=== PATIENT | male | born 1945 | race Caucasian/White ===

== ENCOUNTER → 2022-10-12 09:53 | Outpatient (BNVA) | payer OTHER, SELFPAY | PROVIDERS: PCP Family Medicine; Visit Provider Internal Medicine Cardiovascular Disease | DX: R07.9 Chest pain, unspecified (principal); R01.1 Cardiac murmur, unspecified; I10 Essential (primary) hypertension; I71.9 Aortic aneurysm of unspecified site, without rupture; J44.9 Chronic obstructive pulmonary disease, unspecified; Z87.891 Personal history of nicotine dependence; I45.2 Bifascicular block | CPT/HCPCS: 93005; 99204 ==

== ENCOUNTER 2022-11-10 15:17 | Outpatient (CLI) | payer OTHER, SELFPAY ==
--- NOTE | 2022-11-10 15:30 | CT_ITS ---
WS: [id number] CTA THORACIC TECHNIQUE: Contrast enhanced CTA of the thoracic aorta with coronal and sagittal reformatted images a nd maximum intensity projection (MIP) images. CLINICAL INFORMATION: ascending and descending thoracic aortic aneurysm. COMPARISON: None. DLP: 695.[address] scans at [facility] use at least one of these dose optimization techniques: automated e xposure control; mA and/or kV adjustment per patient size (includes targeted exams where dose is matc hed to clinical indication); or iterative reconstruction. FINDINGS: Aneurysmal ascending thoracic aorta. This measures 4.4 cm in the proximal ascending thoracic aorta. A gerardo measures 3.8 cm at the sinuses of Valsalva and 2.6 cm at the sinotubular junction. High ascendin g thoracic aorta measures 4.2 cm at the level of the RIGHT main pulmonary artery. Aneurysmal distal a ortic arch and proximal descending thoracic aorta measuring 3.5 CCM. Mid and distal descending thorac ic aorta are normal caliber. Normal caliber upper abdominal aorta. Celiac and SMA are patent. Coronar y calcification. No axillary lymphadenopathy. No mediastinal or hilar lymphadenopathy. Normal thyroid gland. Proximal main pulmonary arteries appear normal. Normal branching aortic arch anatomy. Small cysts in the dome the liver. Adrenal glands are normal. Partially visualized bilateral renal cy sts. Some too small characterize. Hypertrophic changes thoracic spine with diffuse ankylosis. Mild chronic emphysematous changes. A few calcified granulomas. No acute pulmonary infiltrates. No fo lisa pneumonia or pleural fluid. Slight subsegmental atelectasis in the lung bases. CT/CT angio chest 03689 IMPRESSION: 1. Aneurysmal ascending thoracic aorta and aortic root described above.This me asures 4.4 cm in the proximal ascending thoracic aorta. 2. Aorta measures 3.8 cm at the sinuses of Valsalva and 2.6 cm at the sinotubu lar junction. 3. High ascending thoracic aorta measures 4.2 cm at the level of the RIGHT joaquin n pulmonary artery. Aneurysmal distal aortic arch and proximal descending thora cic aorta measuring 3.5 CM 4. Lungs are well aerated. No acute pulmonary infiltrates. 5. No mediastinal or hilar lymphadenopathy. 6. No other acute findings.
[2022-11-10 16:13] LABS: Blood Urea Nitrogen 19 mg/dL (8-23)
== END 2022-11-10 15:18 | disposition home or self-care (01) ==
LOC: RAD 15:17
PROVIDERS: PCP Family Medicine; Visit Provider Internal Medicine Cardiovascular Disease
DX: I71.21 Aneurysm of the ascending aorta, without rupture (principal); Q25.43 Congenital aneurysm of aorta
CPT/HCPCS: 71275; 82565; 84520; Q9967

== ENCOUNTER → 2023-02-15 11:20 | Outpatient (BNVA) | payer OTHER, SELFPAY | PROVIDERS: PCP Family Medicine; Visit Provider Internal Medicine Cardiovascular Disease | DX: I10 Essential (primary) hypertension (principal); I35.0 Nonrheumatic aortic (valve) stenosis; I71.9 Aortic aneurysm of unspecified site, without rupture; J44.9 Chronic obstructive pulmonary disease, unspecified; N40.0 Benign prostatic hyperplasia without lower urinary tract symptoms; Z87.891 Personal history of nicotine dependence | CPT/HCPCS: 99214 ==

== ENCOUNTER 2023-06-02 12:50 | Outpatient (CLI) | payer OTHER, SELFPAY ==
--- NOTE | 2023-06-02 12:58 | USCV_ITS ---
Scott Camacho Age: 77 Gender: M : 1945 Exam Date: 06/02/2023 13:06 Ordering Phys: Myriam Zamorano MD Technologist: Exam Location: [facility] [place] Indication: AORTIC STENOSIS BP: 167 / 85 HR: 69 Rhythm: Sinus Technical Quality: Adequate MEASUREMENTS (Male / Female) Normal Values 2D ECHO LV Diastolic Diameter PLAX 5.4 cm 4.2 - 5.9 / 3.9 - 5.3 cm LV Systolic Diameter PLAX 2.7 cm IVS Diastolic Thickness 1.2 cm 0.6 - 1.0 / 0.6 - 0.9 cm IVS Systolic Thickness 1.9 cm LVPW Diastolic Thickness 1.1 cm 0.6 - 1.0 / 0.6 - 0.9 cm LVPW Systolic Thickness 1.6 cm LVOT Diameter 2.0 cm LV Ejection Fraction 2D Teich 75.9 % LV Ejection Fraction MOD 2C 66.8 % LV Ejection Fraction 2C AL 65.8 % LA Diameter 3.9 cm LA Width 2.5 cm M-MODE Aortic Annulus Diameter 4.5 cm LA Ao Ratio MM 1.0 MV E Point Septal Separation 0.9 cm DOPPLER AV Peak Velocity 364.8 cm/s LVOT Peak Velocity 101.0 cm/s AV Area Cont Eq vti 0.8 cm squared AV Area Cont Eq pk 0.9 cm squared MV Area PHT 2.7 cm squared Mitral E to A Ratio 0.7 MV E' Velocity 40.0 cm/s Mitral E to MV E' Ratio 8.6 Mitral E to LV E' Lateral Ratio 9.2 Mitral E to LV E' Septal Ratio 8.0 TR Peak Velocity 299.0 cm/s TR Peak Gradient 35.8 mmHg TV Peak E Velocity 97.0 cm/s Right Atrial Pressure 3.0 mmHg Pulmonary Artery Systolic Pressu 38.8 mmHg RV Acceleration Time 0.1 s FINDINGS Left Ventricle Normal left ventricular size and systolic function, EF 70 %. Moderate left ventricular hypertrophy.no regional wall motion abnormalities. Grade I/IV diastolic dysfunction (abnormal relaxation filling pattern), normal to mildly elevated filling pressures. Right Ventricle The right ventricle is normal in size and function. Right Atrium Mildly increased right atrial size. Left Atrium The left atrium is normal in size. Mitral Valve Mild to moderate mitral valve regurgitation. Aortic Valve Moderate aortic valve calcification. Mild aortic valve regurgitation. Severe, possibly normal for low gradient aortic valve stenosis, mean gradient 28 mmHg, YANNICK 0.76 cm squared. Peak velocity of 3.65 m/s and a peak gradient of 54 mmHg Tricuspid Valve Mild tricuspid valve regurgitation. Pulmonic Valve Trace pulmonary valve regurgitation. Pericardium Normal pericardium without effusion. Aorta Plaque seen in the ascending aorta. IVC The inferior vena cava appears normal. CONCLUSIONS Normal left ventricular size and systolic function, EF 70 %. Moderate left ventricular hypertrophy.no regional wall motion abnormalities. Grade I/IV diastolic dysfunction (abnormal relaxation filling pattern), normal to mildly elevated filling pressures. Mildly increased right atrial size. Mild to moderate mitral valve regurgitation. Moderate aortic valve calcification. Mild aortic valve regurgitation. Severe, possibly normal flow low gradient aortic valve stenosis, mean gradient 28 mmHg, YANNICK 0.76 cm squared. Peak velocity of 3.65 m/s and a peak gradient of 54 mmHg. Mild tricuspid valve regurgitation. Estimated pulmonary artery peak systolic pressure 39 mmHg There is no pericardial effusion. There are no intracardiac masses. No similar previous studies are available for comparison Dr Kwan Garner MD [facility] (Electronically Signed) Final Date: 03 June 2023 19:11 S
== END 2023-06-02 12:51 | disposition home or self-care (01) ==
LOC: RAD 12:50
PROVIDERS: PCP Family Medicine; Visit Provider Family Medicine
DX: I08.3 Combined rheumatic disorders of mitral, aortic and tricuspid valves (principal)
CPT/HCPCS: 93306

== ENCOUNTER 2023-06-14 10:39 | Outpatient (CLI) | payer OTHER, SELFPAY ==
--- NOTE | 2023-06-14 10:44 | CT_ITS ---
WS: [id number] CTA THORACIC AORTA WITH AND WITHOUT CONTRAST HISTORY: ASCENDING DECENDING THORACIC AORTA aneurysms. TECHNIQUE: CT imaging of the thorax is performed with and without contrast. After noncontrast imaging is performed, CT angiogram is performed during injection of Omnipaque 350; 100 mL IV.. Sagittal and coronal reconstructions, sagittal and coronal MIP imaging is submitted. All CT scans at [facility] use at least one of these dose optimization techniques: automated exposure control; mA and/or k V adjustment per patient size (includes targeted exams where dose is matched to clinical indication); or iterative reconstruction. DLP: 668.99 mGy.cm COMPARISON: 11/10/2022 Ectatic mildly aneurysmal thoracic aorta at several places. Maximum diameter of 4.5 cm of the ascendi ng aorta is similar to the prior study. There is no significant dilatation or progression at the sinu s of Valsalva or sinotubular junction. There is mild tapering to the aortic arch. There is an additio nal very minimal dilatation to 3.5 cm of the descending thoracic aorta and then the aorta returns to normal distally. Scattered moderate amount of plaque. No dissection. Great vessels arise normally. Normal size pulmonary artery. No filling defects. Heart is mildly enlarged. No pericardial or pleural effusions. No mass or adenopathy. There are a few scattered benign granulomata. No mediastinal or hi lar adenopathy. There are a few scattered hepatic cysts present. LEFT renal cyst measures 3.2 x 4.0 c m. No adrenal mass. IMPRESSION: 1. Stable appearance of the mildly aneurysmal thoracic aorta. Maximum diameter of the ascending aort a is 4.5 cm with no change. 2. Proximal descending aorta stable at 3.5 cm. 3. No aortic dissection. 4. No pulmonary mass or nodule. No adenopathy.
[2023-06-14 11:21] LABS: Blood Urea Nitrogen 17 mg/dL (8-23)
[2023-06-14] MEDS: iohexol 350 mg/mL 500 mL Btl (per mL) IV (11:31)
== END 2023-06-14 10:40 | disposition home or self-care (01) ==
LOC: RAD 10:39
PROVIDERS: PCP Family Medicine; Visit Provider Family Medicine
DX: I71.21 Aneurysm of the ascending aorta, without rupture (principal); I71.23 Aneurysm of the descending thoracic aorta, without rupture
CPT/HCPCS: 71275; 82565; 84520; Q9967

== ENCOUNTER 2023-08-30 07:47 | Outpatient (CLI) | payer OTHER, SELFPAY ==
--- NOTE | 2023-08-30 07:58 | USCV_ITS ---
Scott Camacho Age: 77 Gender: M : 1945 Exam Date: 08/30/2023 08:06 Ordering Phys: Trista Shelby APRN Technologist: MIGUEL ANGEL Exam Location: [facility] [place] Indication: AAA SCREENING HISTORY: Diameter (cm) AP x Transverse x Length Velocity (cm/s) Waveform Prox Aorta: 2.30 x 2.10 x 30.70 Triphasic Mid Aorta: 1.70 x 2.00 x 85.50 Triphasic Distal Aorta: 1.30 x 1.20 x 170.90 Triphasic Right Iliac Prox: 0.80 x 0.80 x 186.00 Triphasic Left Iliac Prox: 1.00 x 0.80 x 235.80 Triphasic Stent Prox Landing x x Aneurysmal Sac Max x x Lt Lat Sac Dim Rt Lat Sac Dim Stent Dist Landing x x Right Iliac Stent x x Left Iliac Stent x x Right Renal Art Left Renal Art FINDINGS: Comparison: none available. A complete assessment of the abdominal aorta was not possible. No evidence of abdominal aortic or bilateral iliac aneurysm. Atherosclerotic plaque is noted in the abdominal aorta. CONCLUSIONS A complete assessment of the abdominal aorta was not possible. No evidence of abdominal aortic aneurysm. Dr. Violetta Gutierrez DO (Electronically Signed) Final Date: 30 August 2023 09:02 S
== END 2023-08-30 07:48 | disposition home or self-care (01) ==
LOC: RAD 07:48
PROVIDERS: PCP Family Medicine; Visit Provider Nurse Practitioner Family
DX: Z13.6 Encounter for screening for cardiovascular disorders (principal)
CPT/HCPCS: 76706

== ENCOUNTER → 2023-09-13 11:08 | Outpatient (BNVA) | payer OTHER, SELFPAY | PROVIDERS: PCP Family Medicine; Visit Provider Internal Medicine Cardiovascular Disease | DX: I35.0 Nonrheumatic aortic (valve) stenosis (principal); I10 Essential (primary) hypertension; I71.21 Aneurysm of the ascending aorta, without rupture; J44.9 Chronic obstructive pulmonary disease, unspecified; Z87.891 Personal history of nicotine dependence | CPT/HCPCS: 99214 ==

== ENCOUNTER → 2023-11-22 11:26 | Outpatient (CLI) | payer OTHER, SELFPAY ==
--- NOTE | 2023-11-22 12:00 | USCV_ITS ---
Scott Camacho Age: 78 Gender: M : 1945 Exam Date: 11/22/2023 12:08 Ordering Phys: Kwan Garner MD ([email or web address]) Technologist: CT Exam Location: [facility] Indication: as BP: 150 / 76 HR: 68 Rhythm: Sinus Technical Quality: Adequate MEASUREMENTS (Male / Female) Normal Values 2D ECHO LVOT Diameter 2.3 cm LV Ejection Fraction MOD 4C 66.9 % LV Ejection Fraction MOD 2C 73.1 % LV Ejection Fraction 2C AL 75.5 % LA Diameter 4.2 cm RA Systolic Volume 4C AL 63.8 ml RA Systolic Volume 4C MOD 62.4 ml LA Sys Volume AL 60.5 cm cubed LA Sys Volume Index AL 29.6 cm cubed/m squared Aorta at Sinotubular Diameter 3.1 cm IVC Diameter 1.5 cm M-MODE LA Ao Ratio MM 2.2 AV Cusp Separation MM 1.7 cm DOPPLER AV Peak Velocity 307.0 cm/s LVOT Peak Velocity 94.0 cm/s AV Area Cont Eq vti 1.2 cm squared AV Area Cont Eq pk 1.2 cm squared MV Peak Velocity 77.0 cm/s MV Area PHT 3.8 cm squared Mitral E to A Ratio 0.7 TR Peak Velocity 316.0 cm/s TR Peak Gradient 39.9 mmHg TR Mean Velocity 238.0 cm/s TR Mean Gradient 24.9 mmHg TR Velocity Time Integral 80.1 cm TV Peak E Velocity 114.0 cm/s Right Atrial Pressure 3.0 mmHg Pulmonary Artery Systolic Pressu 42.9 mmHg PV Peak Velocity 105.0 cm/s FINDINGS Left Ventricle Mild left ventricular hypertrophy. Normal left ventricular size and systolic function, EF 67%.no regional wall motion abnormalities. Grade I/IV diastolic dysfunction (abnormal relaxation filling pattern), normal to mildly elevated filling pressures. Right Ventricle The right ventricle is normal in size and function. Right Atrium Mildly increased right atrial size. Left Atrium The left atrium is normal in size. Mitral Valve Mild mitral valve regurgitation. Aortic Valve Moderate aortic valve stenosis, mean gradient 20.1 mmHg, YANNICK 1.2 cm squared. Moderate aortic valve calcification. Trace to mild aortic valve regurgitation. Tricuspid Valve [id number] tricuspid valve regurgitation. Estimated pulmonary artery peak systolic pressure 43 mmHg Pulmonic Valve Mild pulmonary valve regurgitation. Pericardium Normal pericardium without effusion. Aorta Normal ascending aorta dimension. IVC Normal inferior vena cava. CONCLUSIONS Mild left ventricular hypertrophy. Normal left ventricular size and systolic function, EF 67%.no regional wall motion abnormalities. Grade I/IV diastolic dysfunction (abnormal relaxation filling pattern), normal to mildly elevated filling pressures. Moderate aortic valve stenosis, mean gradient 20.1 mmHg, YANNICK 1.2 cm squared. Moderate aortic valve calcification. Trace to mild aortic valve regurgitation. Mild mitral valve regurgitation. [id number] tricuspid valve regurgitation. Estimated pulmonary artery peak systolic pressure 43 mmHg. Mild pulmonary valve regurgitation. Compared to the study from 06/02/2023, the aortic valve stenosis appears to be less severe Dr Kwan Garner MD [facility] (Electronically Signed) Final Date: 25 November 2023 02:14 S
== END | disposition home or self-care (01) ==
LOC: RAD 11:25
PROVIDERS: PCP Family Medicine; Visit Provider Internal Medicine Cardiovascular Disease
DX: I50.30 Unspecified diastolic (congestive) heart failure (principal); I35.0 Nonrheumatic aortic (valve) stenosis; I70.0 Atherosclerosis of aorta; I07.1 Rheumatic tricuspid insufficiency; R06.09 Other forms of dyspnea
CPT/HCPCS: 93306

== ENCOUNTER 2023-12-29 10:48 | Outpatient (CLI) | payer OTHER, SELFPAY ==
--- NOTE | 2023-12-29 10:51 | CT_ITS ---
WS: [id number] CTA THORACIC AORTA WITH AND WITHOUT CONTRAST HISTORY: THORACIC AORTIC ANEURYSM 4.5 CM FOLLOW UP TECHNIQUE: CT imaging of the thorax is performed with and without contrast. After noncontrast imaging is performed, CT angiogram is performed during injection of Omnipaque 350; 100 mL IV.. Sagittal and coronal reconstructions, sagittal and coronal MIP imaging is submitted. All CT scans at [facility] use at least one of these dose optimization techniques: automated exposure control; mA and/or k V adjustment per patient size (includes targeted exams where dose is matched to clinical indication); or iterative reconstruction. DLP: 653.02 mGy.cm COMPARISON: 06/14/2023 Mildly ectatic and aneurysmal ascending thoracic aorta with a maximum transverse diameter of 4.5 cm w hich is similar to the prior studies. Sinus of Valsalva and the sinotubular junction are normal size. Aortic arch returns to normal caliber with the ascending aorta at the level of the maureen measuring 2.7 cm. Mild calcified plaque and intimal thickening. There is a small amount of atheromatous plaque at the origin of the great vessels. More focal plaque at the origin of the LEFT vertebral artery but the LEFT vertebral artery is still patent. Mild stenosis of the distal LEFT subclavian artery as it c ourses between the ribs. No aortic dissection. Heart is mildly enlarged. More significant RIGHT atrial dilatation. No pericardial or pleural effusio ns. Normal size pulmonary artery. No pulmonary emboli in the proximal pulmonary arteries. There are a few scattered benign calcified granulomata within the lungs. Linear scar or atelectasis is subsegmen darcie at the lingula. No pneumonia. No mass. Small mediastinal and hilar lymph nodes. No adenopathy. There are a few scattered hepatic cysts. LEFT renal cyst with a septation and wall calcification zandra ures 3.5 x 3.5 cm. No interval change in the renal cyst since 11/10/2022. Gallbladder is contracted. Mi ld atherosclerotic plaque proximal celiac axis and SMA. Thoracic spondylosis. CT/CT angio chest [id number] IMPRESSION: 1. Stable mild aneurysmal mild dilatation of the ascending thoracic aorta. Max imum diameter remains at 4.5 cm. 2. Mild atheromatous plaque thoracic aorta. 3. No pulmonary mass or adenopathy. 4. Stable size minimally complex LEFT renal cyst superior pole. 5. Mild cardiomegaly with more focal RIGHT atrial dilatation.
[2023-12-29] MEDS: iohexol 350 mg/mL 500 mL Btl (per mL) IV (11:41)
== END 2023-12-29 10:49 | disposition home or self-care (01) ==
LOC: RAD 10:49
PROVIDERS: PCP Family Medicine; Visit Provider Family Medicine
DX: I71.21 Aneurysm of the ascending aorta, without rupture (principal); K76.89 Other specified diseases of liver; N28.1 Cyst of kidney, acquired; M47.814 Spondylosis without myelopathy or radiculopathy, thoracic region; I70.0 Atherosclerosis of aorta; I51.7 Cardiomegaly
CPT/HCPCS: 71275; Q9967

== ENCOUNTER → 2024-03-20 11:21 | Outpatient (BNVA) | payer OTHER, SELFPAY | PROVIDERS: PCP Family Medicine; Visit Provider Internal Medicine Cardiovascular Disease | DX: I71.21 Aneurysm of the ascending aorta, without rupture (principal); I25.10 Atherosclerotic heart disease of native coronary artery without angina pectoris; I10 Essential (primary) hypertension; I35.0 Nonrheumatic aortic (valve) stenosis; E78.01 Familial hypercholesterolemia; Z87.891 Personal history of nicotine dependence | CPT/HCPCS: 99214 ==

== ENCOUNTER 2024-04-09 11:44 | Outpatient (CLI) | payer OTHER, SELFPAY ==
[2024-04-09 11:55] VITALS: BP 175/76; PULSE 90; BMI 24.4
--- NOTE | 2024-04-09 11:55 | ECG_ITS ---
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 Interpretive Statements Lung unchanged pre/post procedure; Intraprocedure shortess of breath; Symptoms resoled by discharge PROCEDURE: At the baseline, the patient's blood pressure was 175/75 with a heart rate of 82. The baseline electrocardiogram showed normal sinus rhythm with right bundle branch block pattern. Some features of RV strain. The patient exercised for 7 minutes and 1 second on a standard [place] protocol. Patient attained a maximum heart rate of 151 beats per minute(104% of the maximum predicted heart rate) with a blood pressure at the peak exercise of 194/92 mm Hg. The EKG at the peak exercise revealed. Patient did [not have any chest pain . Had a PVCs and few short runs of nonsustained ventricular tachycardia during the exercise. The EKG showed a more prominent ST-T changes in the precordial leads During the recovery phase, there were no new changes. The EKG almost reverted back to the baseline Blood pressure at the end of the recovery phase was 175/76 mm Hg with a heart rate of 90 per minute. CONCLUSION: 1. Nonspecific EKG response to treadmill exercise 2. No exercise-induced chest pain. Exercise-induced ventricular arrhythmia was noted . 3. Fair exercise tolerance, attained a maximum of 10.2 METs Electronically Signed On 04-09-2024 20:56:26 [employer] by Kwan Garner M.D. [email or web address]
== END 2024-04-09 11:45 | disposition home or self-care (01) ==
LOC: CDL 11:45
PROVIDERS: PCP Family Medicine; Visit Provider Internal Medicine Cardiovascular Disease
DX: Z98.61 Coronary angioplasty status (principal); I49.9 Cardiac arrhythmia, unspecified
CPT/HCPCS: 93017

== ENCOUNTER 2024-08-24 10:11 | Outpatient (CLI) | payer OTHER, SELFPAY ==
--- NOTE | 2024-08-24 10:27 | CT_ITS ---
WS: [id number] CTA THORACIC AORTA WITH AND WITHOUT CONTRAST HISTORY: History of thoracic aneurysm. TECHNIQUE: CTA imaging of the thorax is performed with and without contrast. After noncontrast imaging is performed, CT angiogram is performed during injection of Omnipaque 350; 100 mL IV.. Sagittal and coronal reconstructions, sagittal and coronal MIP imaging is submitted. All CT scans at [facility] use at least one of these dose optimization techniques: automated exposure control; mA and/or kV adjustment per patient size (includes targeted exams where dose is matched to clinical indication); or iterative reconstruction. DLP: 643.72 mGy.cm COMPARISON: 12/29/2023, 11/10/2022 Dilated ectatic thoracic aorta. Maximal diameter of the ascending aorta is 4.4 cm which is similar to prior studies. Descending aorta returns to normal caliber just distal to the arch. Transverse diameter at the level of the maureen is 2.6 cm. Atherosclerotic plaque with ectasia through the aortic arch. Calcifications near the origin of the great vessels. Normal-sized pulmonary artery. Moderate cardiomegaly. Sinus of Valsalva and the sinotubular junction are not well demonstrated on this CT angiogram. There does appear to be slight dilatation of the sinotubular junction but probably not changed since the prior study. No mediastinal or hilar adenopathy. Lungs are hyperexpanded. No pulmonary mass or pneumonia. No endobronchial lesions. No adrenal mass. LEFT lobe hepatic cyst. Reidentified is a lobulated cystic mass superior pole LEFT kidney measures 3.4 x 4.4 cm. Several wall calcifications are identified. Smaller cyst upper pole measures 1.7 cm. No in terval change in size or appearance. Suprarenal aortic calcifications. CT/CT angio chest [id number] IMPRESSION: 1. Stable ascending thoracic aorta aneurysm at 4.4 cm. Aneurysm returns to nor mal during the descending aorta, 2.6 cm. 2. Aneurysm does appear to extend into the aortic root involving the sinotubul ar junction. Sinotubular junction and the sinus of Valsalva are not very well v isualized on this examination. 3. No mediastinal or hilar adenopathy.
[2024-08-24] MEDS: iohexol 350 mg/mL 500 mL Btl (per mL) IV (10:40)
== END 2024-08-24 10:12 | disposition home or self-care (01) ==
PROVIDERS: PCP Family Medicine; Visit Provider Family Medicine
DX: I71.21 Aneurysm of the ascending aorta, without rupture (principal); R93.89 Abnormal findings on diagnostic imaging of other specified body structures; I70.0 Atherosclerosis of aorta; I70.90 Unspecified atherosclerosis; I51.7 Cardiomegaly; R91.8 Other nonspecific abnormal finding of lung field; K76.89 Other specified diseases of liver; N28.89 Other specified disorders of kidney and ureter; N28.1 Cyst of kidney, acquired
CPT/HCPCS: 71275

== ENCOUNTER → 2024-09-18 09:54 | Outpatient (BNVA) | payer OTHER, SELFPAY | PROVIDERS: PCP Family Medicine; Visit Provider Nurse Practitioner Family | DX: I10 Essential (primary) hypertension (principal); I71.21 Aneurysm of the ascending aorta, without rupture; I35.0 Nonrheumatic aortic (valve) stenosis; E78.01 Familial hypercholesterolemia; Z79.82 Long term (current) use of aspirin; Z87.891 Personal history of nicotine dependence; R94.39 Abnormal result of other cardiovascular function study | CPT/HCPCS: 99213 ==

== ENCOUNTER 2024-11-23 09:43 | Outpatient (CLI) | payer OTHER, SELFPAY ==
--- NOTE | 2024-11-23 10:00 | USCV_ITS ---
Scott Camacho Age: 79 Gender: M : 1945 Exam Date: 11/23/2024 11:03 Ordering Phys: Gail Jurado NP Technologist: Erik Gandara Exam Location: [facility] [place] Indication: ao stenosis BP: 152 / 64 HR: 67 Rhythm: Sinus Technical Quality: Adequate MEASUREMENTS (Male / Female) Normal Values 2D ECHO LV Diastolic Diameter PLAX 4.5 cm 4.2 - 5.9 / 3.9 - 5.3 cm IVS Diastolic Thickness 1.5 cm 0.6 - 1.0 / 0.6 - 0.9 cm IVS Systolic Thickness 2.0 cm LVPW Diastolic Thickness 1.7 cm 0.6 - 1.0 / 0.6 - 0.9 cm LVPW Systolic Thickness 2.1 cm LVOT Diameter 2.0 cm LV Ejection Fraction 2D Teich 74.7 % LV Ejection Fraction MOD 4C 71.6 % LV Ejection Fraction MOD 2C 73.0 % LV Ejection Fraction 2C AL 74.0 % LA Diameter 4.1 cm RA Systolic Volume 4C AL 61.0 ml RA Systolic Volume 4C MOD 59.6 ml LA Sys Volume AL 56.2 cm cubed LA Sys Volume Index AL 27.2 cm cubed/m squared Aorta at Sinotubular Diameter 2.6 cm IVC Diameter 1.7 cm M-MODE LA Ao Ratio MM 1.1 AV Cusp Separation MM 0.5 cm DOPPLER AV Peak Velocity 353.5 cm/s LVOT Peak Velocity 98.0 cm/s AV Area Cont Eq vti 0.8 cm squared AV Area Cont Eq pk 0.9 cm squared MV Peak Velocity 120.0 cm/s MV Area PHT 4.5 cm squared Mitral E to A Ratio 0.6 TV Peak Velocity 316.7 cm/s TR Peak Velocity 386.0 cm/s TR Peak Gradient 59.6 mmHg TR Mean Velocity 329.0 cm/s TR Mean Gradient 44.7 mmHg TR Velocity Time Integral 104.0 cm PV Peak Velocity 96.0 cm/s RV Ejection Time 0.2 s FINDINGS Left Ventricle Normal left ventricular size and systolic function, EF 74%.no regional wall motion abnormalities. . Moderate left ventricular hypertrophy. Grade I/IV diastolic dysfunction (abnormal relaxation filling pattern), normal to mildly elevated filling pressures. Right Ventricle The right ventricle is normal in size and function. Right Atrium Mildly increased right atrial size. Left Atrium Mildly increased left atrial size. Mitral Valve Trace mitral valve regurgitation. Aortic Valve Severe low gradient aortic valve stenosis, YANNICK 0.85 cm squared. Peak velocity of 3.85 m/s with a peak gradient of 59 and a mean gradient of 35 mmHg. Mild aortic valve regurgitation. Moderate calcification of the aortic valve Tricuspid Valve Mild tricuspid valve regurgitation. Pulmonic Valve Mild pulmonary valve regurgitation. Pericardium No pericardial effusion. Aorta Dilated ascending aorta measuring 4.1 cm in diameter IVC The inferior vena cava appears normal. CONCLUSIONS Normal left ventricular size and systolic function, EF 74%.no regional wall motion abnormalities. . Moderate left ventricular hypertrophy. Grade I/IV diastolic dysfunction (abnormal relaxation filling pattern), normal to mildly elevated filling pressures. Severe low gradient aortic valve stenosis, YANNICK 0.85 cm squared. Peak velocity of 3.85 m/s with a peak gradient of 59 and a mean gradient of 35 mmHg. Mild aortic valve regurgitation. Moderate calcification of the aortic valve. Trace mitral valve regurgitation. Mild biatrial enlargement. Mild tricuspid valve regurgitation. Mild pulmonary valve regurgitation. Dilated ascending aorta measuring 4.1 cm in diameter. There is no pericardial effusion. There are no intracardiac masses. Compared to the study from 11/22/2023, there is worsening of the aortic valve stenosis Dr Kwan Garner MD [facility] (Electronically Signed) Final Date: 24 November 2024 17:53 S
== END 2024-11-23 09:44 | disposition home or self-care (01) ==
LOC: RAD 09:44
PROVIDERS: PCP Family Medicine; Visit Provider Nurse Practitioner Family
DX: I35.0 Nonrheumatic aortic (valve) stenosis (principal); I08.2 Rheumatic disorders of both aortic and tricuspid valves; I37.1 Nonrheumatic pulmonary valve insufficiency; I77.811 Abdominal aortic ectasia
CPT/HCPCS: 93306

== ENCOUNTER → 2025-01-14 10:05 | Outpatient (BNVA) | payer OTHER, SELFPAY | PROVIDERS: PCP Family Medicine; Visit Provider Internal Medicine Cardiovascular Disease | DX: I25.10 Atherosclerotic heart disease of native coronary artery without angina pectoris (principal); I35.0 Nonrheumatic aortic (valve) stenosis; I71.9 Aortic aneurysm of unspecified site, without rupture; I10 Essential (primary) hypertension; E78.5 Hyperlipidemia, unspecified; Z79.82 Long term (current) use of aspirin; Z87.891 Personal history of nicotine dependence | CPT/HCPCS: 99214 ==